=== PATIENT | male | born 1960 | race Two or more races ===

== ENCOUNTER → 2017-02-12 | Outpatient (CLI) | payer MEDICARE ==
[~2017-02-12] VITALS: Ht 182.9 cm; Wt 85.4 kg
[~2017-02-12] MED LIST: ACET325T9 PO; ACETAMINOPHEN 650 MG/20.3 ML SOLUTION. PEG ONE; ALBU2.5V14 NEB; AMLO5TAB2 PO; ASPI-630 PO; BENZ1TAB5 PO; CALC500T PO; CEFE1PIG IV; CITA10TA8 PO; CLOP75TA PO; DARB60DI SQ; DOCU-109 PO; ESCITALOPRAM OX10 MG PO; FAMO20TA5 PO; FERR325T20 PO; GABA-587 PO; GABA600T2 PO; HALO100V IM; HALO5TAB IM; HEPA500022 IJ; HEPARIN for IV BOLUS 10,000 UNIT/10 ML VIAL. IART ONE; HEPARIN for IV BOLUS 10,000 UNIT/10 ML VIAL. ONE; HYDR100T24 PO; HYDR25TA9 PO; IBUP-1027 PO; INSU100I13 SQ; INSU100I17 SQ; IPRA0.2S5 NEB; IPRA3AMP NEB; LABE100T3 PO; LEVO25TA55 PO; LIDOCAINE 1%/EPI 1:100,000 20 ML VIAL. IJ ONE; LIDOCAINE 2%/EPI 1:100,000 20 ML VIAL. ONE; LINE600I IV; LISI40TA PO; METF850T2 PO; METO10TA81 IV; METR500T8 PO; MICA100V3 IV; MIDAZOLAM HCL/PF 2 MG/2 ML VIAL. ONE; NIFE60TA PO; OMEP40CA5 PO; POTA20TA82 PO; PROP10VI IV; PROPOFOL 100 ML IV PRN; QUET25TA5 PO; RISP1TAB43 PO; SENN-79 PO; TRAZ50TA15 PO; VALP500V2 PO; VITA0.4T6 PO
[2017-02-12 11:40] VITALS: BP 100/51
--- NOTE | 2017-02-12 15:10 | PDOC ---
BRIEF OPERATIVE NOTE Pre-Op Diagnosis ARF and bacteremia Post-Op Diagnosis same Procedure Performed Temp HD Catheter exchange Surgeon Malik Anesthesia Type: Local Findings 20 CM Janki Temp HD via right IJ with good manual flows Complications No immediate Additional Remarks Removed Temp HD catheter tip sent for microbiological analysis ROLY HOLLOWAY MD Feb 12, 2017 15:10
[2017-02-12 15:30] VITALS: BP 101/52
[2017-02-12 15:45] VITALS: BP 76/44
[2017-02-12 16:00] VITALS: BP 85/49
[2017-02-12 16:15] VITALS: BP 80/42
--- NOTE | 2017-02-12 16:47 | RAD ---
Procedure: Fluoroscopic guided exchange of a temporary hemodialysis catheter through same venous access Clinical Indication: Adult male with acute renal failure, sepsis, suspected catheter infection Sedation: Local anesthesia only. The patient is on maintenance propofol drip Antibiotics: None Exposure: Kerma-Area Product: 0.1 Gycm2 Sterility: All elements of maximal sterile barrier technique including the use of a cap, mask, sterile gown, sterile gloves, large sterile sheet, appropriate hand hygiene, and 2% chlorhexidine for cutaneous antisepsis (or acceptable alternative antiseptic per current guidelines) were followed for this procedure. Consent: The procedure was explained in its entirety to the patient or the patients designated contact representative by a member of the treatment team, including a discussion of the risks, benefits and commonly accepted alternatives to the procedure, as well as the expected consequences of no therapy whatsoever. Discussion of the risks included, but was not limited to, those that are most frequent and those that are rare but possibly severe or life-threatening, as well as the possibility of unforeseen complications. Technique and Findings: Following informed consent, the patient was prepped and draped in usual sterile fashion. Fluoroscopic view of the right chest revealed an intact right IJ temporary hemodialysis catheter. This catheter was removed over a wire and a new 20 cm Schon temporary hemodialysis catheter was advanced over the wire and positioned under fluoroscopic guidance such that the distal tip resided in the mid right atrium. Manual flow rates were assessed and found to be excellent. The catheter was flushed, packed with heparin, capped, and sutured to the skin. Complications: No immediate Impression: 1. Fluoroscopic guided exchange of a right IJ temporary hemodialysis catheter through same venous access. This catheter is excellent manual flow rates and is suitable for use. The removed catheter was sent for microbiologic analysis. [facility]
== END | disposition home or self-care (01) ==
LOC: INTRAD 11:01
PROVIDERS: ATTEND Internal Medicine
DX: T82.49XA Other complication of vascular dialysis catheter, initial encounter (principal); Y92.89 Other specified places as the place of occurrence of the external cause; Y84.9 Medical procedure, unspecified as the cause of abnormal reaction of the patient, or of later complication, without mention of misadventure at the time of the procedure; E11.22 Type 2 diabetes mellitus with diabetic chronic kidney disease; N18.9 Chronic kidney disease, unspecified; Z86.39 Personal history of other endocrine, nutritional and metabolic disease; Z86.14 Personal history of Methicillin resistant Staphylococcus aureus infection
CPT/HCPCS: 36580; 77001; 87205; A4215; J1644; J2704; J3490